=== PATIENT | female | born 1940 | race African-American/Black ===

== ENCOUNTER 2023-04-27 19:51 | Inpatient (IN) | payer MEDICARE, OTHER ==
[~2023-04-27] VITALS: Ht 165.1 cm; Wt 54.6 kg
[~2023-04-27 19:51] MED LIST: AMLO10TA80 PO; TOPUD PO
[2023-04-27] MEDS ORDERED: MORPHINE SULFATE 4 MG/ML CPJ (NOT FOR IM USE) IV STA (21:02)
[2023-04-27] MEDS ORDERED: SODIUM CHLORIDE 0.9% 1,000 ML IV ONE (21:15)
[2023-04-27 21:43] LABS: BASOPHILS % 0.3 % (0.0-2.0); EOSINOPHILS % 1.3 % (0.0-5.0); HEMATOCRIT. 33.5 % (36.0-48.0); HEMOGLOBIN. 11.1 g/dL (12.0-16.0); MEAN CORPUSCULAR HEMOGLOBIN 31.4 pg (28.0-32.0); MEAN CORPUSCULAR VOLUME 94.7 fL (81.0-99.0); MONOCYTES % 8.8 % (2.0-8.0); NEUTROPHILS % 62.6 % (40.0-76.0); PLATELET 184 x1000/uL (130-400); RED BLOOD CELL COUNT 3.53 mill/uL (4.2-5.4); RED CELL DISTRIBUTION WIDTH 12.9 % (11.6-14.6)
[2023-04-27 21:49] LABS: CHLORIDE 115 mEq/L (98-107)
[2023-04-27 22:08] LABS: PARTIAL THROMBOPLASTIN TIME 23.3 sec (23.4-31.0); PROTHROMBIN TIME 10.5 sec (9.6-11.0)
[2023-04-28] MEDS ORDERED: MORPHINE SULFATE 4 MG/ML CPJ (NOT FOR IM USE) IV NR (01:00)
[2023-04-28] MEDS ORDERED: HYDROCODONE/ACETAMINOPHEN 5/325MG TABLET PO PRN (07:45)
[2023-04-28] MEDS ORDERED: ONDANSETRON HCL 4MG/2ML INJ IV PRN (07:45)
[2023-04-28] MEDS ORDERED: NALOXONE HCL 0.4MG/ML VIAL IV PRN (07:45)
[2023-04-28] MEDS ORDERED: ACETAMINOPHEN 325MG TABLET PO PRN ×2 (07:45)
[2023-04-28] MEDS ORDERED: CLONIDINE 0.1MG TABLET PO PRN (07:45)
[2023-04-28] MEDS ORDERED: IPRATROPIUM/ALBUTEROL 0.5-3(2.5)MG/3ML NEB HHN PRN (07:45)
[2023-04-28 11:05] VITALS: BP 145/73
[2023-04-28 12:00] VITALS: BP 142/89
[2023-04-28 16:00] VITALS: BP 157/83
[2023-04-28] MEDS ORDERED: LORAZEPAM 2MG/ML CPJ IV PRN (16:00)
[2023-04-28] MEDS ORDERED: HALOPERIDOL LACTATE 5MG/ML VIAL IM PRN (16:00)
[2023-04-28] MEDS ORDERED: DIPHENHYDRAMINE 50MG/ML VIAL IV PRN (16:00)
[2023-04-28] MEDS: AMLODIPINE 10MG TABLET PO SCH (18:49)
[2023-04-28 20:00] VITALS: BP 135/82
[2023-04-29] VITALS: BP 118/58
[2023-04-29 04:00] VITALS: BP 134/76
[2023-04-29 06:57] LABS: BASOPHILS % 0.3 % (0.0-2.0); EOSINOPHILS % 2.5 % (0.0-5.0); HEMATOCRIT. 28.7 % (36.0-48.0); HEMOGLOBIN. 9.8 g/dL (12.0-16.0); LYMPHOCYTES % 32.9 % (20.0-50.0); MEAN CORPUSCULAR HEMOGLOBIN 31.8 pg (28.0-32.0); MEAN CORPUSCULAR VOLUME 93.6 fL (81.0-99.0); MEAN PLATELET VOLUME 8.4 fl (7.4-10.4); MONOCYTES % 8.4 % (2.0-8.0); NEUTROPHILS % 55.9 % (40.0-76.0); PLATELET 148 x1000/uL (130-400); RED BLOOD CELL COUNT 3.07 mill/uL (4.2-5.4); RED CELL DISTRIBUTION WIDTH 12.5 % (11.6-14.6)
[2023-04-29 08:00] VITALS: BP 148/81
[2023-04-29] MEDS: AMLODIPINE 10MG TABLET PO SCH ×2 (08:39→17:38)
[2023-04-29 09:56] LABS: T4 FREE 1.08 ng/dL (0.76-1.46)
[2023-04-29 12:00] VITALS: BP 147/73
[2023-04-29 16:00] VITALS: BP 140/87
[2023-04-29 20:00] VITALS: BP 138/65
[2023-04-30 08:00] VITALS: BP 129/71
[2023-04-30] MEDS: AMLODIPINE 10MG TABLET PO SCH ×2 (08:35→21:17)
[2023-04-30] MEDS: DOCUSATE SODIUM 100MG CAPSULE PO PRN (09:43)
[2023-04-30 12:00] VITALS: BP 134/67
[2023-04-30 12:53] LABS: BASOPHILS % 0.3 % (0.0-2.0); EOSINOPHILS % 2.1 % (0.0-5.0); HEMOGLOBIN. 10.8 g/dL (12.0-16.0); LYMPHOCYTES % 23.3 % (20.0-50.0); MEAN CORPUSCULAR VOLUME 94.8 fL (81.0-99.0); MEAN PLATELET VOLUME 8.3 fl (7.4-10.4); MONOCYTES % 8.7 % (2.0-8.0); NEUTROPHILS % 65.6 % (40.0-76.0); PLATELET 158 x1000/uL (130-400); RED BLOOD CELL COUNT 3.38 mill/uL (4.2-5.4); RED CELL DISTRIBUTION WIDTH 12.6 % (11.6-14.6)
[2023-04-30 13:07] LABS: CANCER ANTIGEN 125 23.1 U/mL (0.0-38.1)
[2023-04-30 13:10] LABS: PHOSPHORUS 2.2 mg/dL (2.5-4.9)
[2023-04-30 16:00] VITALS: BP 142/74
[2023-04-30 20:00] VITALS: BP 145/78
[2023-05-01 04:00] VITALS: BP 140/75
[2023-05-01 07:42] LABS: BASOPHILS % 0.5 % (0.0-2.0); EOSINOPHILS % 4.4 % (0.0-5.0); HEMOGLOBIN. 10.4 g/dL (12.0-16.0); LYMPHOCYTES % 37.6 % (20.0-50.0); MEAN CORPUSCULAR HEMOGLOBIN 31.5 pg (28.0-32.0); MEAN CORPUSCULAR VOLUME 94.2 fL (81.0-99.0); MEAN PLATELET VOLUME 8.4 fl (7.4-10.4); MONOCYTES % 7.1 % (2.0-8.0); NEUTROPHILS % 50.4 % (40.0-76.0); PLATELET 152 x1000/uL (130-400); RED BLOOD CELL COUNT 3.29 mill/uL (4.2-5.4); RED CELL DISTRIBUTION WIDTH 12.6 % (11.6-14.6)
[2023-05-01 08:00] VITALS: BP 138/73
[2023-05-01] MEDS: AMLODIPINE 10MG TABLET PO SCH ×2 (09:30→17:02)
[2023-05-01] MEDS: DOCUSATE SODIUM 100MG CAPSULE PO PRN (09:31)
[2023-05-01 12:00] VITALS: BP_SYST 116; BP_SYST 124; BP_DIAS 74; BP_DIAS 77
[2023-05-01] MEDS ORDERED: ERGOCALCIFEROL 50000UNITS CAPSULE PO SCH (13:00)
[2023-05-01 16:00] VITALS: BP 123/72
[2023-05-01 20:00] VITALS: BP 144/73
[2023-05-02 04:00] VITALS: BP 136/78
[2023-05-02 08:00] VITALS: BP 141/81
[2023-05-02] MEDS: AMLODIPINE 10MG TABLET PO SCH ×2 (08:48→16:49)
[2023-05-02 12:00] VITALS: BP 131/65
[2023-05-02 16:00] VITALS: BP 150/73
[2023-05-02 16:34] VITALS: BP 121/67
[2023-05-03] MEDS ORDERED: IPRATROPIUM/ALBUTEROL 0.5-3(2.5)MG/3ML NEB HHN PRN (12:00)
== END 2023-05-02 17:15 | disposition home health service (06) | DRG 754 ==
LOC: ER 19:51 → 6EST 04-28 06:27 → EDBEDREQ 04-28 06:53
PROVIDERS: ADMIT Family Medicine Adult Medicine; ATTEND Family Medicine Adult Medicine
DX: C54.1 Malignant neoplasm of endometrium (principal); G93.41 Metabolic encephalopathy; N17.9 Acute kidney failure, unspecified; E46 Unspecified protein-calorie malnutrition; D64.9 Anemia, unspecified; I12.9 Hypertensive chronic kidney disease with stage 1 through stage 4 chronic kidney disease, or unspecified chronic kidney disease; J44.9 Chronic obstructive pulmonary disease, unspecified; N18.30 Chronic kidney disease, stage 3 unspecified; E21.0 Primary hyperparathyroidism; M85.80 Other specified disorders of bone density and structure, unspecified site; E78.00 Pure hypercholesterolemia, unspecified; F02.80 Dementia in other diseases classified elsewhere, unspecified severity, without behavioral disturbance, psychotic disturbance, mood disturbance, and anxiety; G30.9 Alzheimer's disease, unspecified; M47.9 Spondylosis, unspecified; M48.02 Spinal stenosis, cervical region; R53.81 Other malaise; R26.89 Other abnormalities of gait and mobility; R93.89 Abnormal findings on diagnostic imaging of other specified body structures; E16.2 Hypoglycemia, unspecified; D25.9 Leiomyoma of uterus, unspecified; E55.9 Vitamin D deficiency, unspecified; Z79.1 Long term (current) use of non-steroidal anti-inflammatories (NSAID); Z79.899 Other long term (current) drug therapy; Z68.20 Body mass index [BMI] 20.0-20.9, adult; Z80.3 Family history of malignant neoplasm of breast; Z80.42 Family history of malignant neoplasm of prostate; Z80.49 Family history of malignant neoplasm of other genital organs; Z82.49 Family history of ischemic heart disease and other diseases of the circulatory system; Z87.19 Personal history of other diseases of the digestive system
CPT/HCPCS: 36415; 72192; 73502; 76830; 76856; 80048; 80053; 82105; 82306; 82378; 82533; 83735; 84100; 84134; 84439; 84443; 85025; 86300; 86301; 86304; 86850; 86900; 93005; 97162; 97166; 99285; J2270; J7030

== ENCOUNTER 2023-05-09 19:07 | Emergency (ER) | payer MEDICARE, OTHER ==
[~2023-05-09] VITALS: Ht 162.6 cm; Wt 59.0 kg
[2023-05-09] MEDS ORDERED: SODIUM CHLORIDE 0.9% 1,000 ML IV ONE (20:45)
[2023-05-09 21:06] LABS: EOSINOPHILS % 1.5 % (0.0-5.0); HEMATOCRIT. 29.3 % (36.0-48.0); LYMPHOCYTES % 34.8 % (20.0-50.0); MEAN CORPUSCULAR HEMOGLOBIN 32.2 pg (28.0-32.0); MEAN PLATELET VOLUME 7.6 fl (7.4-10.4); MONOCYTES % 5.5 % (2.0-8.0); NEUTROPHILS % 57.2 % (40.0-76.0); PLATELET 258 x1000/uL (130-400); RED BLOOD CELL COUNT 3.12 mill/uL (4.2-5.4); RED CELL DISTRIBUTION WIDTH 12.4 % (11.6-14.6)
[2023-05-09 21:13] LABS: CHLORIDE 110 mEq/L (98-107)
[2023-05-10 15:04] VITALS: BP 168/73
== END 2023-05-10 15:41 | disposition home or self-care (01) ==
LOC: ER 19:07
DX: R53.1 Weakness (principal); F03.90 Unspecified dementia, unspecified severity, without behavioral disturbance, psychotic disturbance, mood disturbance, and anxiety; I10 Essential (primary) hypertension
CPT/HCPCS: 36415; 71045; 80053; 83880; 84484; 85025; 93005; 96360; 96361; 99285; J7030